=== PATIENT | male | born 1995 | race Caucasian/White ===

== ENCOUNTER 2017-08-24 18:10 | Emergency (ER) | payer BC ==
[2017-08-24 19:13] VITALS: BP 138/83; PULSE 70; TEMP 99; BMI 28.2
--- NOTE | 2017-08-24 19:17 | PDOC ---
History of Present Illness - History of Present Illness Initial Comments: 08/24/17 19:39 The patient is a 22 year old male, who presents to the emergency department with , approx one week of epigastric abdominal pain. The patient reports the epigastric abdominal pain radiates up to his chest and endorses some chest discomfort. The patient states the epigastric abdominal pain is made worse when he eats or drinks water, and is alleviated when he is not eating. The patient states he was diagnosed with an upper respiratory infection on Saturday (6 days ago) and has just finished his course of antibiotics. The patient states he has been taking Tums and Advil for the chest discomfort with minimal relief. The patient also reports one episode of non bloody, non bilious emesis earlier today. The patient states he had an EKG performed on Saturday which was normal. He denies any recent fevers, chills, headache or dizziness. He denies any recent diarrhea or constipation. He denies any recent chest pain, palpitations or shortness of breath. PAST MEDICAL HISTORY: no significant history PAST SURGICAL HISTORY: no significant history FAMILY HISTORY: no pertinent history SOCIAL HISTORY: Pt lives with family and is employed. Review of Systems General: No fevers or chills, no weakness, no weight loss HEENT: No change in vision. No sore throat,. No ear pain CardioVascular: (+) Chest discomfort. No chest pain or shortness of breath Respiratory:No cough, or wheezing. Gastrointestinal: (+) Nausea. (+) Vomiting. (+) Epigastric abdominal pain. No diarrhea or constipation, No rectal bleeding Genitourinary: No dysuria, hematuria, or frequency Musculoskeletal: No joint or muscle pain or swelling Neurologic: No headache, vertigo, dizziness or loss of consciousness Psychiatric: nor depression Skin: No rashes or easy bruising Endocrine: no increased thirst or abnormal weight change Allergic: no skin or latex allergy All other systems reviewed and normal Physical Exam General: Well-nourished well-developed individual, no acute distress HEENT: Throat: (+) Mild erythema to the posterior oropharynx., Tonsils normal, no exudate Neck: Supple, no meningeal signs, no lymphadenopathy Eyes::Pupils equal reactive and round, extraocular motion intact Chest: Nontender to palpation Cardiac: S1-S2 normal, regular rate and rhythm, no murmurs rubs or gallops Respiratory: Lungs clear to auscultation bilateral Abdomen: (+) Mild tenderness to palpation in the epigastric region. Soft, nondistended, normal bowel sounds. Extremities: Warm, dry, no cyanosis, clubbing, or edema Skin: No rashes Neuro: Alert and oriented x3, nonfocal exam, grossly intact, normal gait Psych: Normal mood and affect <Owen Roche - Last Filed: 08/24/17 19:55> - General History Source: Patient Exam Limitations: No Limitations - History of Present Illness Initial Comments: 08/24/17 19:35 A portion of this note was documented by scribe services under my direction. I have reviewed the details of the note, within reason, and agree with the documentation. The case summary and management plan written by me. Medical decision making this is a 22-year-old male who comes in complaining of a burning sensation in his epigastric area radiating to his chest. Patient was at primary care center several days ago and diagnosed with a viral upper respiratory tract infection and started on azithromycin which she finished. Patient also has been taking an excess of anti-inflammatories for the pain which is making the pain worse he said. Differential diagnosis includes gastric irritation from NSAIDs/gastritis, pharyngitis, viral upper respiratory tract infection, pleuritis, costochondritis , cardiac disease, Will obtain workup including EKG, CBC, comp, lipase, chest x-ray and cardiac enzymes Will medicate with antacids including Pepcid and Maalox. Will reassess and follow-up on the results of the workup. 08/24/17 21:03 Reevaluation patient symptoms are improved with the antacids. Patient's chest x-ray shows no acute pathology Patient's EKG is normal Patient's blood work is normal with the exception of increased monos a Monospot was added to rule out infectious mono Assessment and plan: This is a 22-year-old male with fatigue and epigastric pain. Patient has been taking an excess of anti-inflammatories most likely contributing to his gastric discomfort. Patient was told to stop the anti- inflammatories and take some antacids for a couple weeks. Patient denied any symptoms suggestive of a bleed secondary to the gastritis. In addition to that patient's symptoms and workup is suspicious for infectious mono if infectious mono screen is still pending. Patient will call in for the result tomorrow morning and will follow-up with his primary care doctor if it is positive Patient discharged home with his father. 08/24/17 21:06 <Jaswinder Joyner I - Last Filed: 08/24/17 21:08> - General Chief Complaint: Respiratory Stated Complaint: SORE THROAT, DRY COUGH, CHEST PAIN Time Seen by Provider: 08/24/17 19:16 Past History <Owen Roche - Last Filed: 08/24/17 19:55> - Past Medical History COPD: No Other medical history: DENIES - Suicide/Smoking/Psychosocial Hx Smoking History: Never smoked Hx Alcohol Use: No Drug/Substance Use Hx: No <Jaswinder Joyner I - Last Filed: 08/24/17 21:08> - Past Medical History Allergies/Adverse Reactions: Allergies Allergy/AdvReac Type Severity Reaction Status Date / Time No Known Allergies Allergy Unverified 08/24/17 18:28 *Physical Exam - Vital Signs Last Vital Signs Temp Pulse Resp BP Pulse Ox 99 F 70 18 138/83 98 08/24/17 18:10 08/24/17 18:10 08/24/17 18:10 08/24/17 18:10 08/24/17 18:10 <Owen Roche - Last Filed: 08/24/17 19:55> - Vital Signs Last Vital Signs Temp Pulse Resp BP Pulse Ox 99 F 70 18 138/83 98 08/24/17 18:10 08/24/17 18:10 08/24/17 18:10 08/24/17 18:10 08/24/17 18:10 <Jaswinder Joyner I - Last Filed: 08/24/17 21:08> Heart Score/ECG Review #1 08/24/17 19:55 Normal Sinus Rhythm at 70 bpm. QT/QTc at 412/[address] Andres. <Owen Roche - Last Filed: 08/24/17 19:55> ED Treatment Course - LABORATORY CBC & Chemistry Diagram: 08/24/17 19:40 08/24/17 19:40 <Owen Roche - Last Filed: 08/24/17 19:55> - LABORATORY CBC & Chemistry Diagram: 08/24/17 19:40 08/24/17 19:40 <Jaswinder Joyner I - Last Filed: 08/24/17 21:08> *DC/Admit/Observation/Transfer - Attestations Scribe Attestion: 08/24/17 19:39 Documentation prepared by Owen Roche, acting as biomedical manager for Jaswinder Joyner MD. <Owen Roche - Last Filed: 08/24/17 19:55> <Jaswinder Joyner I - Last Filed: 08/24/17 21:08> Diagnosis at time of Disposition: Gastritis Qualifiers: Gastritis type: unspecified gastritis Chronicity: acute Gastritis bleeding: presence of bleeding unspecified Qualified Code(s): K29.00 - Acute gastritis without bleeding - Discharge Dispostion Disposition: HOME Condition at time of disposition: Stable - Patient Instructions Additional Instructions: Purchase some [id number] antacids such as prilosec and take as directed on the box also you can purchase some Tums and Maalox to take as needed for symptomatic relief. Return to the emergency department immediately with ANY new, persistent or worsening symptoms. Continue any medications as previously prescribed by your physician. You should follow up with your primary doctor as soon as possible regarding today's emergency department visit. . Please make sure your doctor reviews the results of your emergency evaluation. Thank you for coming to the Emergency Department today for your care. It was a pleasure to see you today. Please note that your evaluation is INCOMPLETE until you follow-up with your doctor. - Post Discharge Activity Forms/Work/School Notes: Back to School
[2017-08-24] MEDS ORDERED: MAG HYDROX/AL HYDROX/SIMETH 30 ML UNIT-DOSE CUP PO ONE (19:29)
[2017-08-24] MEDS ORDERED: FAMOTIDINE IV 20 MG/12 ML VIAL IVPUSH ONE (19:30)
[2017-08-24] MEDS ORDERED: FAMOTIDINE 20 MG/50 ML IVPB 20 MG/50 ML MG IVPB ONE (19:44)
[2017-08-24] MEDS ORDERED: MAG HYDROX/AL HYDROX/SIMETH 30 ML UNIT-DOSE CUP ONE (19:44)
[2017-08-24 20:01] LABS: BASO % 0.6 % (0-2.0); EOS % 1.7 % (0-4.5); HEMATOCRIT 41.5 % (35.4-49); HEMOGLOBIN 14.1 GM/dl (11.7-16.9); LYMPH % 20.3 % (8-40); MCH 29.2 pg (25.7-33.7); MCHC 34.1 g/dl (32.0-35.9); MEAN CELL VOLUME 85.7 fl (80-96); MEAN PLT VOLUME 9.5 fl (7.5-11.1); MONO % 12.3 % (3.8-10.2); NEUT % 65.1 % (42.8-82.8); PLATELET COUNT 205 K/MM3 (134-434); RBC 4.84 M/mm3 (4.00-5.60); RDW 11.8 % (11.9-15.9); WHITE BLOOD COUNT 6.6 K/mm3 (4.0-10.8)
[2017-08-24 20:16] LABS: ALBUMIN 3.7 g/dl (3.5-5.0); ALK PHOS 40 U/L (32-92); ANION GAP 3 (8-16); BILIRUBIN,TOTAL 0.9 mg/dl (0.2-1.0); BLOOD UREA NITROGEN 11 mg/dl (7-18); CALCIUM 8.8 mg/dl (8.4-10.2); CHLORIDE 102 mmol/L (98-107); CO2 30 mmol/L (22-28); CREATININE 0.8 mg/dl (0.6-1.3); GLUCOSE,RANDOM 92 mg/dl (74-106); POTASSIUM 3.6 mmol/L (3.5-5.1); SGOT/AST 19 U/L (10-42); SGPT/ALT 20 U/L (10-40); SODIUM 135 mmol/L (136-145); TOT PROT 6.4 g/dl (6.4-8.3)
--- NOTE | 2017-08-26 00:10 | EKG ---
Test Reason : Blood Pressure : / mmHG Vent. Rate : 070 BPM Atrial Rate : 070 BPM P-R Int : 132 ms QRS Dur : 108 ms QT Int : 412 ms P-R-T Axes : 037 081 045 degrees QTc Int : 444 ms NORMAL SINUS RHYTHM NORMAL ECG NO PREVIOUS ECGS AVAILABLE Confirmed by SHAN NINO, RHODA ([id number]) on 08/26/2017 12:10:27 AM Referred By: FUNMILAYO DIEGO Confirmed By:RHODA TORREZ MD
== END 2017-08-24 21:15 | disposition home or self-care (01) ==
LOC: FER 18:10
PROC: 3E033GC Introduction of Other Therapeutic Substance into Peripheral Vein, Percutaneous Approach (ICD-10-PCS; principal; 2017-08-24)
DX: K29.00 Acute gastritis without bleeding (principal)
CPT/HCPCS: 36415; 71046-TC-FY; 80053; 82550; 84484; 85025; 86308; 93005; 99283-25